=== PATIENT | female | born 1960 | race Caucasian/White ===

== ENCOUNTER 2019-02-28 05:57 | Day surgery (SDC) | payer OTHER, SELFPAY ==
[2019-02-28 06:18] VITALS: BP 116/72; PULSE 64; RESP 16; TEMP 36.8; O2SAT 97; BMI 34.4
[2019-02-28] MEDS: Cefazolin 2 GM in 0.9% Normal Saline 100 ML IV (07:22)
--- NOTE | 2019-02-28 07:49 | DCINST_ITS ---
Discharge Diet: Light diet - advance as tolerated Discharge Activity: Return to Normal Activity Call your doctor if your incision/area has: Continuous Slow Oozing, Sudden Increased Bleeding, Increased Pain/ Swelling, Increased Redness, Foul Smelling Discharge, Swelling at the incision site Call your doctor if you observe: Fever of 101 or Higher Suture Line Care: Avoid Pulling/Pushing, Avoid Pinching/Bending Allergies/Adverse Reactions: Allergies No Known Allergies Allergy (Verified 02/28/19 06:13) Medications to take at Discharge Atorvastatin Calcium [Lipitor] 10 mg PO QHS 02/24/19 Cholecalciferol (VIT D3) [Vitamin D] 1,200 unit PO DAILY 02/24/19 Glucosamine Sulfate 1,500 mg PO DAILY 02/24/19 Loratadine [Claritin] 10 mg PO DAILY 02/24/19 Travoprost 0.004% [Travatan-Z 0.004% Eye Drop] 1 drp EACH EYE DAILY 02/24/19 Ciprofloxacin [Cipro] 500 mg PO BID #6 tab 02/28/19 Hydrocodone/Acetaminophen [[place] 5-325 Tablet] 1 ea PO Q4H PRN PRN 7 Days #20 tab 02/28/19 The following prescriptions were given: Ciprofloxacin [Cipro] 500 mg PO BID #6 tab Prescription Printed Hydrocodone/Acetaminophen [[place] 5-325 Tablet] 1 ea PO Q4H PRN PRN 7 Days #20 tab PRN Reason: Pain Prescription Printed Primary Care Physician: Gregorio Torres MD [Primary Care Provider] - Test Results: Test results from this visit will be discussed in further detail at your follow- up appointment, if applicable. Please Follow Up With: Nicola Christina MD When: please call to make an appointment.
--- NOTE | 2019-02-28 07:50 | PCM.OPRPT ---
Report of Operation Date of Procedure: 02/28/19 Pre-Operative Diagnosis: Right ureteral calculi Post-Operative Diagnosis: The same Surgery/Procedure Performed:: Cystoscopy, balloon dilation of the ureter, right retrograde pyelogram, interpretation fluoroscopic images, right ureteroscopy laser lithotripsy of stone and stent placement Description of Surgical Findings:: 58-year-old female taken back to the operating room at the smooth induction of general anesthesia she was placed in dorsolithotomy position, went into the bladder with a 21 [place] rigid cystourethroscope, entire bladder bladder was normal the trigone was normal urethra is normal no tumors stones seen within the bladder I then identified the right ureteral orifice advanced a wire up the ureteral orifice immediately could feel the stone in the wire advanced a balloon dilator next of the stone balloon dilated the distal ureter very carefully and then left the wire in place in the next to the wire went in with a ureteroscope performed a retrograde pyelogram interpreted the fluoroscopic images could see the contrast going up to the ureter up to the kidney, and then engage the stone with laser lithotripsy and laser the stone little tiny pieces and all the pieces passed into the bladder all the fragments came out of the ureter. She did have a fairly inflamed area within the ureter so I decided to leave a stent. I then backloaded the stent over the safety wire that was in for the entire case and then over the wire I pulled the wire and then the stent coiled in the kidney and bladder I then drained the bladder left the string on the stent for easy extraction in a few days she will call the office in the next week we can see her to remove the stent. Type of Anesthesia:: General Drains: stent right side - Admit VTE Documentation VTE Present on Admission: No VTE Mechan Device Prophylaxis: SCD's
[2019-02-28 07:56] VITALS: BP 115/74; BP 116/72; PULSE 65; RESP 16; TEMP 36.2; O2SAT 93
[2019-02-28 08:04] VITALS: BP 116/72; BP 121/77; PULSE 66; RESP 16; O2SAT 95
[2019-02-28 08:15] VITALS: BP 116/72; BP 137/88; BP 147/78; PULSE 61; PULSE 62; RESP 16; TEMP 36.2; O2SAT 96; O2SAT 97
[2019-02-28 09:35] VITALS: BP 116/72; BP 153/76; PULSE 62; RESP 16; TEMP 36.5; O2SAT 99
== END 2019-02-28 09:35 | disposition home or self-care (01) ==
LOC: SDC 05:58 → AC 05:59
PROVIDERS: Family Provider Family Medicine; PCP Family Medicine; Referring Provider Urology; Visit Provider Urology
PROC: 0TJ98ZZ Inspection of Ureter, Via Natural or Artificial Opening Endoscopic (ICD-10-PCS; CPT 52352; principal; 2019-02-28 07:20)
DX: N20.1 Calculus of ureter (principal); E78.5 Hyperlipidemia, unspecified; M54.9 Dorsalgia, unspecified
CPT/HCPCS: 52356; 76000; J7120; C1726; C1769; C2617; J2405

== ENCOUNTER 2021-09-20 11:35 | Day surgery (SDC) | payer MEDICAID, SELFPAY ==
[2021-09-20] VITALS (7 sets, daily range): BP systolic 103–143; BP diastolic 59–90; PULSE 59–66; RESP 16; TEMP 36.3–36.4; O2SAT 97–99; BMI 33.8
[2021-09-20] MEDS: Lactated Ringers 1,000 ML 15 ML IV (12:30)
--- NOTE | 2021-09-20 12:53 | PCM.HP.BLA ---
History and Physical Date of Admission: 09/20/21 I also very pleasant 61-year-old with past hypercholesterolemia who arrives here for screening colonoscopy. She does have a history of kidney stones but not had any problems recently. She is not have any abdominal pain. Is not have any vomiting. She not have any chest pain or shortness of breath. She is not seeing any blood in her stool. She is not having any bloating, constipation or diarrhea. She denies any lower GI bleeding. She has no family history of GI malignancy. All other 16 review of systems negative except as per body mentioned HPI. Past medical history is positive for hypercholesterolemia, mild arthritis, seasonal allergies Past surgical history is positive for kidney stone removal Family history is positive for GERD, hypertension, diabetes Social history negative for tobacco, alcohol or drugs She has no known drug allergies Medications: Atorvastatin 10 mg at night, glucosamine 1500 mg a day, loratadine 10 mg p.o. twice daily vitamin D3 1200 international units/day Office examination blood pressure is 143/90, pulse is 66, respiratory 16, temperature is 97.6, satting 97% on room air Generally no acute distress On HEENT she is not jaundice or icteric Neck is no JVD lymphadenopathy Lungs clear station bilaterally Heart regular rate regular rhythm no murmurs rubs gallops Abdomen is soft nontender distended four-quadrant no hepatosplenomegaly Extremities no clubbing cyanosis edema Assessment and plan Karen is a very pleasant 61-year-old who comes in for screening colonoscopy. She was explained alternatives, risk, benefits including outstanding bleeding, infection, sepsis, perforation, need for emergent surgery . She have an ASA of 1.
--- NOTE | 2021-09-20 13:32 | OP.CCLET_ITS ---
04/17/2022 Gregorio Torres [address] [facility] [place] [address] Re : Colonoscopy procedure for Karen Copeland Dear Dr. Torres This procedure was performed on Monday, September 20, 2021. My impressions and recommendations are as follows: Impressions : - Moderate diverticulosis in the sigmoid colon and in the descending colon. - The examination was otherwise normal on direct and retroflexion views. - No specimens collected. Recommendations : - Discharge patient to home. - Resume previous diet. - Continue present medications. - Repeat colonoscopy in 10 years for surveillance. My findings are described in the full procedure note, which is enclosed. If I can be of further assistance, please feel free to contact me at . Sincerely, Teo Friend, 09/20/2021 1:32:13 PM This report has been signed electronically.
--- NOTE | 2021-09-20 13:32 | OP.COLON_ITS ---
Patient Name: Karen Copeland Procedure Date: 09/20/2021 12:52 PM Date of : 1960 Age: 61 Procedure: Colonoscopy Indications: Screening for colorectal malignant neoplasm Providers: Teo Grewal DO Medicines: See the Anesthesia note for documentation of the administered medications Patient Profile: This is a 61 year old female. Refer to note in patient chart for documentation of history and physical. Last Colonoscopy: date unknown. Unable to locate last colonoscopy report. Complications: No immediate complications. Procedure: Pre-Anesthesia Assessment: - Prior to the procedure, a History and Physical was performed, and patient medications and allergies were reviewed. The patient is competent. The risks and benefits of the procedure and the sedation options and risks were discussed with the patient. All questions were answered and informed consent was obtained. Patient identification and proposed procedure were verified by the physician in the pre-procedure area. Mental Status Examination: alert and oriented. Airway Examination: normal oropharyngeal airway and neck mobility. Respiratory Examination: clear to auscultation. CV Examination: normal. Prophylactic Antibiotics: The patient does not require prophylactic antibiotics. Prior Anticoagulants: The patient has taken no previous anticoagulant or antiplatelet agents. ASA Grade Assessment: II - A patient with mild systemic disease. After reviewing the risks and benefits, the patient was deemed in satisfactory condition to undergo the procedure. The anesthesia plan was to use moderate sedation / analgesia (conscious sedation). Immediately prior to administration of medications, the patient was re-assessed for adequacy to receive sedatives. The heart rate, respiratory rate, oxygen saturations, blood pressure, adequacy of pulmonary ventilation, and response to care were monitored throughout the procedure. The physical status of the patient was re-assessed after the procedure. After I obtained informed consent, the scope was passed under direct vision. Throughout the procedure, the patient's blood pressure, pulse, and oxygen saturations were monitored continuously. The pediatric colonoscope was introduced through the anus and advanced to the terminal ileum. The colonoscopy was performed without difficulty. The patient tolerated the procedure well. The quality of the bowel preparation was good. Moderate Sedation: Moderate (conscious) sedation was administered by the endoscopy nurse and supervised by the endoscopist. The following parameters were monitored: oxygen saturation, heart rate, blood pressure, and response to care. Total physician intraservice time was 15 minutes. Scope In: 1:04:19 PM Scope Withdrawal Time 0 hours 12 minutes 13 seconds Scope Out: 1:25:50 PM Total Procedure Duration Time 0 hours 21 minutes 31 seconds Findings: The perianal and digital rectal examinations were normal. Multiple small and large-mouthed diverticula were found in the sigmoid colon and descending colon. The exam was otherwise without abnormality on direct and retroflexion views. Hemorrhoids were found on perianal exam. Impression: - Moderate diverticulosis in the sigmoid colon and in the descending colon. - The examination was otherwise normal on direct and retroflexion views. - No specimens collected. Recommendation: - Discharge patient to home. - Resume previous diet. - Continue present medications. - Repeat colonoscopy in 10 years for surveillance. Procedure Code(s): --- Professional --- 54164, Colonoscopy, flexible; diagnostic, including collection of specimen(s) by brushing or washing, when performed (separate procedure) 78596, 61, Moderate sedation services provided by the same physician or other qualified health manager progressive care performing the diagnostic or therapeutic service that the sedation supports, requiring the presence of an independent trained observer to assist in the monitoring of the patient's level of consciousness and physiological status; initial 15 minutes of intraservice time, patient age 5 years or older CPT copyright 2017 [employer]. All rights reserved. The codes documented in this report are preliminary and upon commercial drone software developer review may be revised to meet current compliance requirements. Teo Grewal DO 09/20/2021 1:32:13 PM This report has been signed electronically. Number of Addenda: 1 Note Initiated On: 09/20/2021 12:52 PM Addendum Number: 1 Addendum Date: 04/17/2022 6:40:35 AM MAC was used for sedation during this procedure. Teo Grewal DO 04/17/2022 6:40:39 AM This report has been signed electronically.
== END 2021-09-20 23:59 | disposition home or self-care (01) ==
LOC: EN 11:38 → AC 11:39
PROVIDERS: PCP Family Medicine; Referring Provider Family Medicine; Visit Provider Internal Medicine Gastroenterology
PROC: 0DJD8ZZ Inspection of Lower Intestinal Tract, Via Natural or Artificial Opening Endoscopic (ICD-10-PCS; CPT 45378; principal; 2021-09-20 12:40)
DX: Z12.11 Encounter for screening for malignant neoplasm of colon (principal); K57.30 Diverticulosis of large intestine without perforation or abscess without bleeding; K64.9 Unspecified hemorrhoids; E78.00 Pure hypercholesterolemia, unspecified; Z87.442 Personal history of urinary calculi
CPT/HCPCS: 45378; J7120; J2405